=== PATIENT | female | born 1960 | race Caucasian/White ===

== ENCOUNTER → 2024-05-26 07:51 | Outpatient (REF) | payer OTHER, SELFPAY | LOC: PET 07:51 | PROVIDERS: ATTENDING PHYSICIAN Internal Medicine Hematology & Oncology | DX: C7A.8 Other malignant neuroendocrine tumors (principal) | CPT/HCPCS: 78815 ==

== ENCOUNTER 2024-06-15 08:19 | Outpatient (REF) | payer OTHER, SELFPAY ==
[2024-06-15 09:09] LABS: Hematocrit 35.6 % (37.0-47.0); Hemoglobin 11.8 g/dL (12.0-16.0); Mean Corp Hgb Conc. 33.1 g/dL (33.0-37.0); Mean Corpuscular Hgb 27.4 pg (27.0-31.0); Mean Corpuscular Volume 82.6 fL (81.0-99.0); Mean Platelet Volume 10.2 fL (7.4-10.4); Platelet Count 191 10^3/uL (130-400); Red Blood Cell Count 4.31 10^6/uL (4.20-5.40); Red Cell Dist. Width 15.7 % (11.5-14.5); White Blood Cell Count 5.7 10^3/uL (4.8-10.8)
[2024-06-15 09:17] VITALS: BP 143/84; BP_SYST 72
[2024-06-15 09:33] LABS: INR 1.06; PT 13.9 Sec (11.4-14.6)
[2024-06-15 10:41] VITALS: BP 127/69
[2024-06-15 11:00] VITALS: BP 129/64
[2024-06-15 11:15] VITALS: BP 123/65
[2024-06-15 11:45] VITALS: BP 121/65
[2024-06-15 12:15] VITALS: BP 122/66
== END 2024-06-15 12:30 | disposition home or self-care (01) ==
LOC: RADI 08:19
PROVIDERS: ATTENDING PHYSICIAN Internal Medicine Hematology & Oncology; FAMILY PHYSICIAN Nurse Practitioner Family
DX: C7B.8 Other secondary neuroendocrine tumors (principal); Z01.812 Encounter for preprocedural laboratory examination; Z01.818 Encounter for other preprocedural examination
CPT/HCPCS: 88307; 36415; 47000; 76942; 85027; 85610; 88333; 88341; 88342; 99152

== ENCOUNTER → 2025-07-08 07:52 | Outpatient (REF) | payer OTHER, MEDICARE, SELFPAY | LOC: PET 07:52 | PROVIDERS: ATTENDING PHYSICIAN Surgery | DX: D3A.8 Other benign neuroendocrine tumors (principal) | CPT/HCPCS: 78815 ==